=== PATIENT | male | born 1995 | race Asian ===

== ENCOUNTER 2021-04-06 05:51 | Emergency (ER) | payer OTHER, SELFPAY ==
[2021-04-06 05:52] VITALS: BP 123/85; PULSE 114; RESP 18; TEMP 36.9; O2SAT 96; BMI 21.1
[2021-04-06 05:58] VITALS: BP 123/85; PULSE 114; RESP 18; TEMP 36.9; O2SAT 96
--- NOTE | 2021-04-06 06:13 | EX.ED.DYSGE1 ---
HPI History of Present Illness Chief Complaint: Abscess Informant: patient Narrative Narrative: 25-year-old male states that on Wednesday he developed a pustule on his lower face. It continued to get bigger and is painful. He was able to get some antibiotics from home (appears to be written in Indonesian) which she states have not been helping. He notes it is painful so he can sleep. He states he is never had anything like this before. He has got some drainage from it. PFSH [facility] Medical History Benign tumor Home Medications cephalexin 500 mg PO Q6 #28 capsule 04/06/21 [Rx Last Taken Unknown] hydrocodone-acetaminophen 1 tab PO Q6H PRN PRN 3 Days #12 tablet 04/06/21 [Rx Last Taken Unknown] sulfamethoxazole-trimethoprim 1 tab PO BID #14 tablet 04/06/21 [Rx Last Taken Unknown] Allergy/AdvReac Type Severity Reaction Status Date / Time No Known Allergies Allergy Verified 04/06/21 05:57 Social History (Updated 04/06/21 @ 06:[address] Marlon Aldridge DO) Smoking Status: Never smoker substance use type: does not use ROS ROS ED Constitutional Constitutional ED: Denies chills or weight loss Eyes Eyes: Denies change in vision or diplopia ENT ENT ED: Denies ear pain, rhinorrhea or sore throat Cardiovascular Cardiovascular: Denies chest pain, orthopnea, palpitations or racing heartbeat Respiratory/Chest Respiratory/Chest: Denies cough, dyspnea or orthopnea Gastrointestinal Gastrointestinal: Denies abdominal pain, diarrhea, nausea or vomiting Genitourinary Genitourinary ED: Denies dysuria, hematuria or urinary frequency Musculoskeletal Musculoskeletal: Denies arthralgias or myalgias Integumentary Reports abscess; Denies rash Neurologic Neurologic: Denies headache(s) or weakness Psychiatric Psychiatric: Denies anxiety, depression, suicidal ideation or suicidal thoughts Endocrine Endocrinology: Denies polydipsia, polyphagia or polyuria Allergic/Immunologic Allergic/Immunologic ED: Denies mouth swelling, tongue swelling or urticaria EXAM Physical Exam Const Vital Signs: 04/06/21 05:52 04/06/21 05:58 Temperature 98.5 F 98.5 F Temperature Source Oral Oral Pulse Rate 114 H 114 H Respiratory Rate 18 18 Blood Pressure 123/85 H 123/85 H Blood Pressure Mean 97 97 Pulse Ox 96 96 Oxygen Delivery Method Room Air Room Air Positive well nourished and well developed General Appearance ED: well developed HEENT Reports normocephalic, head/scalp atraumatic, TM's clear and moist mucous membranes HEENT Narrative: Located inferior to the lower left lip is a cutaneous abscess. There is no significant surrounding erythema. It is pointing. Tympanic Membrane ED: Yes TM's clear Eyes PERRL and EOMs intact bilaterally Neck no lymphadenopathy, supple and no JVD Resp normal respiratory effort and clear to auscultation bilaterally Cardio regular rate, regular rhythm and no murmurs GI normal to inspection, nondistended, normoactive bowel sounds and non-tender Palpation: soft Back/Spine no CVA tenderness and normal ROM Extremity normal to inspection General Extremety ED: Negative for edema General Extremity: Negative for edema Neuro oriented x3 and CN's II-XII intact bilaterally Sensorium / Orientation: alert Motor Exam: strength 5/5 throughout Psych mental status grossly normal Mood & Affect: Negative for depressed or tearful Skin no rashes or lesions noted and no wounds MDM MDM MDM Narrative Medical decision making narrative: Using 18-gauge needle I was able to do remove the lesion. This allowed me to express a significant amount of pus. As this is in a very prominent facial place it 1 to make a larger incision at this time. Patient will be started on Bactrim and Keflex. I did obtain a wound culture. I will also write for some pain medication. He understands that if this reaccumulate he may require a formal I&D return if worsening or concerns Discharge Plan Triage Chief Complaint: Abscess ED Provider: Marlon Aldridge Dx/Rx/DC Orders Clinical Impression: Abscess of face Instructions: ED Abscess Antibiotic Treatment Only Prescriptions: New hydrocodone-acetaminophen [hydrocodone-acetaminophen] 1 TABLET tablet 1 tab PO Q6H PRN PRN (Reason: Pain) 3 Days Qty: 12 RF: 0 cephalexin [cephalexin] 500 MG capsule 500 mg PO Q6 Qty: 28 RF: 0 sulfamethoxazole-trimethoprim [sulfamethoxazole-trimethoprim] 1 TABLET tablet 1 tab PO BID Qty: 14 RF: 0 Primary Care Provider: NOT,DEFINED Referrals: NOT,DEFINED [Primary Care Provider] - Disposition Disposition: Home, Self Care
[2021-04-06] MEDS: HYDROcodone Bitartrate/Apap 5/325 Tablet PO (06:37)
[2021-04-06] MEDS: Smz/Tmp Ds Tablet 1 TABLET PO (06:37)
[2021-04-06] MEDS: Cephalexin 250 MG Capsule 500 MG PO (06:37)
== END 2021-04-06 06:39 | disposition home or self-care (01) ==
LOC: ED 06:35
PROVIDERS: Emergency Provider Emergency Medicine
DX: L02.01 Cutaneous abscess of face (principal)
CPT/HCPCS: 87070; 87077; 87186; 87205; 90471; 99284